=== PATIENT | male | born 1980 | race Caucasian/White ===

== ENCOUNTER 2018-09-27 11:47 | Inpatient (IN) | payer OTHER ==
[2018-09-27] MEDS ORDERED: cefTRIAXone\\ROCEPHIN 2 GM VIAL ONE (11:57)
[2018-09-27 12:04] LABS: #Basophils 0.1 thou/uL (0.0-0.2); #Eosinphils 0.2 thou/uL (0.0-0.7); #Monocytes 0.6 thou/uL (0.11-0.59); #Neutrophils 6.4 thou/uL (1.40-6.50); %Basophils 0.8 % (0.0-1.0); %Eosinophils 1.5 % (0.0-10.0); %Lymphocytes 29.5 % (21.0-51.0); %Monocytes 5.5 % (0.0-10.0); %Neutrophils 62.7 % (42.0-75.0); Hemoglobin 16.2 g/dL (14.0-18.0); Mean Corpuscular HGB CONC 31.3 g/dL (32.0-36.0); Mean Corpuscular Hemoglobin 28.5 pg (27.0-31.0); Mean Corpuscular Volume 91.1 fL (78.0-98.0); Mean Platelet Volume 7.4 fL (7.4-10.4); Platelet Count 309 thou/uL (130-400); RBC Distribution Width 11.8 % (11.5-14.5); Red Blood Cell (RBC) Count 5.69 mill/uL (4.70-6.10); White Blood Cell (WBC) Count 10.3 thou/uL (4.8-10.8)
[2018-09-27] MEDS ORDERED: Morphine 4 MG/ML VIAL ONE (12:09)
[2018-09-27] MEDS ORDERED: Lidocaine 1% w/Epinephrine 1:100K 20 ML VIAL ONE (12:14)
[2018-09-27 12:25] LABS: Albumin 4.3 g/dL (3.5-5.0); Bilirubin, Total 0.8 mg/dL (0.2-1.2); Calcium 9.2 mg/dL (7.8-10.44); Carbon Dioxide 19 mmol/L (22-29); Chloride 107 mmol/L (98-107); Globulin 2.6 g/dL (2.4-3.5); Glucose 106 mg/dL (70-105); Potassium 4.7 mmol/L (3.5-5.1); Protein, Total 6.9 g/dL (6.0-8.3); Sodium 137 mmol/L (136-145)
[2018-09-27 12:26] LABS: Alkaline Phosphatase 71 U/L (40-150)
[2018-09-27 12:27] LABS: Calc. Creatinine Clearance 0 mL/min (70-130); Estimated GFR-MDRD 77
[2018-09-27 12:28] LABS: BUN (Urea Nitrogen) 17 mg/dL (8.9-20.6)
[2018-09-27 12:29] LABS: ALT (SGPT) 52 U/L (8-55); AST (SGOT) 30 U/L (5-34)
[2018-09-27 12:37] LABS: Anion Gap 19 mmol/L (10-20)
[2018-09-27] MEDS ORDERED: Ketorolac Tromethamine 30 MG/ML VIAL IVP SCH (13:00)
[2018-09-27] MEDS ORDERED: hydrALAZINE 20 MG/ML VIAL SLOW IVP PRN (13:06)
[2018-09-27] MEDS ORDERED: Dextrose 50% Abboject 50 ML SYRINGE SLOW IVP PRN (13:06)
[2018-09-27] MEDS ORDERED: Dextrose 5% in Water 1,000 ML IV PRN (13:06)
[2018-09-27] MEDS ORDERED: Morphine 4 MG/ML VIAL SLOW IVP PRN ×2 (13:06→17:30)
--- NOTE | 2018-09-27 13:13 | RAD ---
RIGHT FORELEG RADIOGRAPHS 2 VIEWS: DATE: 09/27/2018. PROVIDED CLINICAL HISTORY: Right leg pain status post trauma. FINDINGS: There are comminuted, displaced fractures of the distal tibial and fibular metaphyses with predominan tly anterior displacement of the distal fragments with respect to the proximal fragments and some fra cture fragment overriding, particularly involving the fibula. No additional fracture is evident. IMPRESSION: Comminuted displaced distal tibial and fibular fractures. POS: TPC
[2018-09-27] MEDS ORDERED: Famotidine/PF 20 mg/2ml Vial SLOW IVP SCH (13:15)
--- NOTE | 2018-09-27 13:39 | HP ---
SUBJECTIVE: This is a 38-year-old male, who was working on a ladder, when he leaned over too far and fell approximately 6 to 8 feet landing on concrete injuring his right foot. The patient denies hitting his head. The patient denies any loss of consciousness. The patient complains of an open wound and pain to right ankle. The patient was brought in by ambulance and was given a total of 300 mcg of fentanyl for pain IV. The patient was evaluated in the emergency room, who was found to have an open right comminuted distal tib-fib fracture. The patient was also given morphine 4 mg for pain for splinting. The patient did receive a tetanus in the emergency room and Rocephin [address] Castle has been consulted with Orthopedics and is waiting OR. The patient last had coffee at 8:30 this morning. States he did not eat anything today. PAST MEDICAL HISTORY: Reflux. PAST SURGICAL HISTORY: Left knee replacement. FAMILY HISTORY: Dad with diabetes. SOCIAL HISTORY: The patient drinks socially, every week. Denies any drug use. The patient is a former tobacco user, quit smoking 10 years ago. MEDICATIONS: [id number] medications for reflux. ALLERGIES: NO KNOWN DRUG ALLERGIES. REVIEW OF SYSTEMS: A 10-point review of systems negative unless otherwise stated in the HPI. PHYSICAL EXAMINATION: GENERAL: The patient is afebrile with normal vital signs. Alert and oriented to person, place, time, and event. VITAL SIGNS: Blood pressure 133/80, temperature 98.4, SpO2 of 100% on room air, respirations 20, and heart rate 96. HEENT: Head is atraumatic and normocephalic. Pupils are equal and reactive at 3 mm bilateral. Extraocular muscles intact. Mouth exam normal. Mucous membranes moist. NECK: Normal range of motion. Trachea midline. No posterior cervical tenderness. RESPIRATORY: Breath sounds clear. No wheezing, rales, or rhonchi. Chest without any crepitus. No bruising noted. Chest expansion is equal. CARDIOVASCULAR: Regular rate and rhythm. HEART: Sounds normal. No murmurs noted. ABDOMEN: Soft, nontender, and nondistended. Active bowel sounds. BACK: Normal inspection. No tenderness. Normal range of motion. EXTREMITIES: The patient with open wound to right distal tib-fib. Long splint in place with positive distal pulses 2+. Left leg without any injury. Left arm without any injury. Right upper extremity, elbow abrasion. PELVIS: Stable. Non tender. No injuries noted. SKIN: Warm and dry. Abrasion, right elbow. Open wound, right lower extremity. LABORATORY DATA: WBC 10,300, RBC 5.69, hemoglobin 16.2, hematocrit 51.8, and platelets 309. Sodium 137, potassium 4.7, chloride 107, carbon dioxide 19, BUN 17, creatinine 1.07, estimated GFR 77, glucose 106, calcium 9.2, total bilirubin 0.8 , AST 30, ALT 52, alkaline phos 71, total protein 6.9, albumin 4.3, and globulin 2.6. DIAGNOSTICS: X-ray tibia-fibula, open right comminuted distal tib-fib fracture. IMPRESSION: 1. Fall from 6 to 8 feet. 2. Right open comminuted distal tib-fib fracture. 3. Acute traumatic pain. PLAN: Trauma will admit the patient to surgical ortho floor. Dr. Castle has been consulted and will evaluate and take the patient to the OR today. We will continue patient's IV antibiotics. We will keep the patient n.p.o. and place on IV fluids. We will manage the patient's pain. We will obtain PT consult after the surgery. The patient will be discussed with Dr. Bryson, attending trauma surgeon after this dictation. Job ID: [id number] [facility]
[2018-09-27] MEDS ORDERED: Fentanyl 100 MCG/2 ML VIAL ONE ×2 (13:43→16:25)
[2018-09-27] MEDS ORDERED: PACU-Morphine 4MG/ML VIAL SLOW IVP PRN (14:42)
[2018-09-27] MEDS ORDERED: HYDROmorphone 2 MG/ML VIAL SLOW IVP PRN (14:42)
[2018-09-27] MEDS ORDERED: Promethazine HCl 25 MG/ML VIAL IM PRN (14:42)
[2018-09-27] MEDS ORDERED: Promethazine HCl 25 MG/ML VIAL SLOW IVP PRN (14:42)
[2018-09-27] MEDS ORDERED: Ondansetron HCl/PF 4 MG/2 ML Vial IVP PRN (14:42)
[2018-09-27] MEDS ORDERED: Morphine 10 MG/ML VIAL ONE (15:00)
--- NOTE | 2018-09-27 15:57 | RAD ---
RIGHT TIBIA/FIBULA 09/27/18 HISTORY: Right tibia and fibula fracture. COMPARISON: 09/27/18 FINDINGS/IMPRESSION: Multiple limited intraoperative fluoroscopic views of the right tibia and fibula were submitted for i nterpretation. The patient is status post antegrade intramedullary db fixation of a distal tibia fra cture. An adjacent fibula fracture is also seen. There is better alignment of the fracture compared t o the preoperative radiograph. POS: NEDRA
[2018-09-27] MEDS ORDERED: Meperidine HCl/PF 25 MG/ML VIAL ONE (16:04)
[2018-09-27] MEDS ORDERED: CEFAZOLIN/Water 2 GM/20 ML SYRINGE SLOW IVP SCH (16:15)
[2018-09-27] MEDS ORDERED: Lidocaine 1% PF 5 ML VIAL ONE (16:39)
[2018-09-27] MEDS ORDERED: Ondansetron PF 4 MG/2 ML Vial ONE (16:39)
[2018-09-27] MEDS ORDERED: PROPOFOL 200 MG/20 ML VIAL ONE (16:39)
--- NOTE | 2018-09-27 16:51 | PRG ---
DATE OF SERVICE: 09/27/2018 SUBJECTIVE: Kaz is a 38-year-old man, who fell of a ladder landing approximately 6 to 8 feet. He suffered an open right distal tib-fib fractures. The patient just returned from the operating room and is awake in the postanesthesia care unit. His [place] Coma Scale is noted at E4, M6, V4. He reports adequate pain control. I have reviewed the history and physical by the trauma PA, Ms. Moran. The patient has no significant past medical history except for gastroesophageal reflux disease. He is status post left knee arthroplasty. He was on no prescription medications prior to this admission. IMPRESSION: 1. Status post fall from a ladder. 2. Right distal tib-fib fractures status post surgical repair. PLAN: 1. Postanesthesia care, the patient will be transferred to general surgical floor, where I will continue with further medical management. 2. We will initiate physical and occupational therapy as appropriate. 3. Chemical VTE prophylaxis will be initiated. Above findings and plan discussed with the patient, who indicates understanding of information given. I have discussed this patient's care plan with Ms. Moran and I do agree with her history and physical as documented. Job ID: [id number]
[2018-09-27] MEDS: Acetaminophen 1,000 MG in Premix Bag 1 BAG IVPB SCH (17:45)
[2018-09-27] MEDS: Ketorolac Tromethamine 30 MG/ML VIAL IVP SCH (17:45)
[2018-09-27] MEDS: Ondansetron PF 4 MG/2 ML Vial IVP PRN (18:01)
[2018-09-27] MEDS: Sodium Chloride 0.9% 1,000 ML IV SCH ×2 (19:15→22:28)
[2018-09-27] MEDS: CEFAZOLIN 2 GM/50 ML-DEXTROSE 2 GM in Premix Bag 1 BAG IVPB SCH (20:47)
[2018-09-27] MEDS: Famotidine 20 MG TAB PO SCH (20:48)
[2018-09-27 22:00] VITALS: BMI 26.2
[2018-09-27] MEDS: Senokot S 8.6-50 MG TAB PO SCH (22:28)
[2018-09-28] MEDS: Acetaminophen 1,000 MG in Premix Bag 1 BAG IVPB SCH ×2 (00:29→05:14)
[2018-09-28] MEDS: Ondansetron PF 4 MG/2 ML Vial IVP PRN (00:30)
[2018-09-28] MEDS: Ketorolac Tromethamine 30 MG/ML VIAL IVP SCH ×2 (00:30→05:14)
[2018-09-28] MEDS: CEFAZOLIN 2 GM/50 ML-DEXTROSE 2 GM in Premix Bag 1 BAG IVPB SCH ×3 (05:13→20:51)
[2018-09-28] MEDS: Sodium Chloride 0.9% 1,000 ML IV SCH (05:29)
[2018-09-28 06:18] LABS: #Eosinphils 0.1 thou/uL (0.0-0.7); #Lymphocytes 2.6 thou/uL (1.20-3.40); #Monocytes 1.1 thou/uL (0.11-0.59); #Neutrophils 5.4 thou/uL (1.40-6.50); %Eosinophils 0.6 % (0.0-10.0); %Lymphocytes 28.5 % (21.0-51.0); %Monocytes 12.1 % (0.0-10.0); %Neutrophils 58.8 % (42.0-75.0); Hemoglobin 12.9 g/dL (14.0-18.0); Mean Corpuscular HGB CONC 33.9 g/dL (32.0-36.0); Mean Corpuscular Hemoglobin 30.9 pg (27.0-31.0); Mean Corpuscular Volume 91.2 fL (78.0-98.0); Mean Platelet Volume 7.4 fL (7.4-10.4); Platelet Count 243 thou/uL (130-400); RBC Distribution Width 11.8 % (11.5-14.5); Red Blood Cell (RBC) Count 4.17 mill/uL (4.70-6.10); White Blood Cell (WBC) Count 9.3 thou/uL (4.8-10.8)
[2018-09-28 06:26] LABS: ALT (SGPT) 37 U/L (8-55); AST (SGOT) 47 U/L (5-34); Albumin 3.3 g/dL (3.5-5.0); Alkaline Phosphatase 52 U/L (40-150); Anion Gap 11 mmol/L (10-20); BUN (Urea Nitrogen) 13 mg/dL (8.9-20.6); Calc. Creatinine Clearance 152 mL/min (70-130); Calcium 7.9 mg/dL (7.8-10.44); Carbon Dioxide 23 mmol/L (22-29); Chloride 106 mmol/L (98-107); Estimated GFR-MDRD Greater than 90; Globulin 2.1 g/dL (2.4-3.5); Glucose 95 mg/dL (70-105); Potassium 3.9 mmol/L (3.5-5.1); Protein, Total 5.4 g/dL (6.0-8.3); Sodium 136 mmol/L (136-145)
[2018-09-28] MEDS ORDERED: traMADol HCl 50 MG TAB PO PRN ×3 (06:53→08:31)
[2018-09-28] MEDS ORDERED: Morphine 4 MG/ML VIAL SLOW IVP PRN ×2 (06:54)
[2018-09-28] MEDS ORDERED: Potassium Chloride 20 MEQ TAB PO SCH (07:00)
[2018-09-28 07:39] LABS: Magnesium 1.8 mg/dL (1.6-2.6); Phosphorus 3.4 mg/dL (2.3-4.7)
[2018-09-28] MEDS: Famotidine 20 MG TAB PO SCH ×2 (08:58→20:50)
[2018-09-28] MEDS: Acetaminophen 500 MG TAB PO SCH ×3 (08:58→20:50)
[2018-09-28] MEDS: Enoxaparin Sodium 40 MG/0.4 ML SYRINGE SC SCH (08:59)
[2018-09-28] MEDS: Senokot S 8.6-50 MG TAB PO SCH ×2 (08:59→20:50)
[2018-09-28] MEDS: Ibuprofen 800 MG TAB PO SCH ×2 (08:59→16:29)
[2018-09-28] MEDS: Polyethylene Glycol 3350 17 GM Packet PO SCH (08:59)
--- NOTE | 2018-09-28 11:39 | PRG ---
DATE OF SERVICE: 09/28/2018 SUBJECTIVE: A 38-year-old male status post fall from 6-8 foot ladder with right open comminuted distal tibia fibular fracture, status post ortho fixation, postop day #1. Today, patient has no complaints. Nursing reports no acute events overnight. Still awaiting physical therapy to visit with the patient. He has no other concerns at this time. OBJECTIVE: VITAL SIGNS: Temperature 98.3, pulse 68, respirations 16, and saturations 93% on room air, and blood pressure 103/62. GENERAL: Resting comfortably in bed. No acute distress. HEENT: Head is atraumatic, normocephalic. NECK: Full range of motion. Trachea midline. RESPIRATORY: Breath sounds clear. No wheezing, rales, or rhonchi. Chest with even rise and fall. CARDIOVASCULAR: Regular rate and rhythm. ABDOMEN: Soft, nontender, nondistended. Active bowel sounds. EXTREMITIES: Postoperative bandaging to right lower extremity. It is clean, dry, intact. No signs of acute infection. SKIN: Warm and dry. No abnormal lesions or rashes. LABORATORY DATA: Hemoglobin 12.9, hematocrit 38.8, WBC 9.8. MCV 91.2. Sodium 136, potassium 3.9, chloride 106, carbon dioxide 23, creatinine 0.87, GFR greater than 90 Positive for magnesium of 1.8. DIAGNOSTIC IMAGING: No new imaging reviewed today. ASSESSMENT: 1. Fall from 6-8 feet from ladder. 2. Right open comminuted distal tib-fib fracture status post ortho fixation, postoperative day #1. PLAN: 1. Pain currently controlled. We will transition to oral scheduled pain medications including ibuprofen and Tylenol with tramadol for breakthrough pain. Currently awaiting physical therapy to evaluate. 2. Continue with IV pain medication. 3. Per Ortho, continue current antibiotic regimen with cefazolin for duration of 2 days. 4. DVT prophylaxis. We will initiate Lovenox 40 mg subcutaneous daily. Encourage ambulation. 5. Hypokalemia. Replace. The patient was seen and examined by Dr. Bryson and plan discussed in detail with patient who agrees with the above findings. Job ID: [id number] [facility]TDD
[2018-09-28] MEDS: traMADol HCl 50 MG TAB PO PRN (20:51)
--- NOTE | 2018-09-28 21:35 | OP ---
DATE OF PROCEDURE: 09/27/2018 PREOPERATIVE DIAGNOSIS: Right grade 2 open tib-fib fracture. POSTOPERATIVE DIAGNOSIS: Right grade 2 open tib-fib fracture. PROCEDURES PERFORMED: 1. Intramedullary nail stabilization of right tibia. 2. Irrigation and debridement of right tibia. ANESTHESIA: General. SENIOR SYSTEMS SOFTWARE ENGINEER: Karie Cortez PA-C ESTIMATED BLOOD LOSS: 200 mL. IMPLANTS: Synthes nail system was used with a 9 x 390 mm nail and a total of 3 cross-locking screws. COMPLICATIONS: None. DRAINS: None. SPECIMEN: None. OUTCOME: Successful closure of wound and stable fixation of the IM nail with acceptable alignment. INDICATIONS FOR PROCEDURE: The patient is a pleasant 38-year-old gentleman who while at work, fell from a ladder from a height of approximately 6 feet, sustaining an open distal tib-fib fracture. The patient has received 2 g of Rocephin in the emergency room and a splint applied to the leg along with a saline-soaked gauze. The patient now to be taken to the operating room for formal irrigation, debridement, and stabilization if appropriate with either external fixator or intramedullary nail stabilization. Informed consent has been obtained. I believe all questions have been answered. DESCRIPTION OF PROCEDURE: The patient was brought to the operating room and a time-out performed followed by induction of general anesthesia. Next, the patient was positioned supine on the fracture table with the injured extremity held over a thigh bolster and then longitudinal traction applied with the traction device. The unaffected extremity was just held in extension to allow for AP, lateral imaging of the right tibia. Next, a sterile prep and drape was performed of this right lower leg. Attention was then placed to the open traumatic wound, this was a vertical incision. Skin edges were found to be intact. There was no gross contamination. Some hair was removed from the wound and then the wound irrigated with 6 L of normal saline using Pulsavac. The visible fracture fragments all had periosteum still attached with some soft tissue attachment and as such, the bone was not removed from the wound. Next, attention was placed at stabilization of the tibia. A vertical incision was made extending from the patella down over the patellar tendon to the level of the tibial tubercle after skin was sharply incised. Dissection was carried down bluntly exposing the peritenon of the patellar tendon. The peritenon was incised in line with skin incision, reflected medially and laterally. Next, the patellar tendon was reflected laterally gaining access to the proximal tibia and a control was used to obtain a starting point for intramedullary nail placement. Once established, a ball-tipped guidewire was passed down the shaft of the tibia across the comminuted fracture of the distal 3rd and into the distal tibial metaphysis. Next, reaming was started at 8.5 mm and continued up to 9 mm with chatter occurring at 9 mm. This reaming was necessary due to the fact the smallest nail available was a size 9. Once some reaming performed, the wound again irrigated with Pulsavac and then a 9 x 390 mm nail was passed down the canal across the fracture in the distal tibial metaphysis. Next, under C-arm guidance, two small stab wounds were made, one medially and one anteriorly and then a freehand technique was used for placement of cross-lock screws. At the completion of this, a single proximal cross-lock screw was applied using the appropriate jig. The jig was then removed and formal AP, lateral C-arm imaging of both proximal tibia and the fracture with distal cross-locking screws was performed and these images were saved. The wound again irrigated distally at the traumatic site and this was closed with a single layer of 3-0 nylon in simple fashion. This was then followed by closure of the surgical incisions. The small stab wounds for the cross-lock screws were reapproximated with benton. The midline anterior knee incision was reapproximated in layers with 0 Vicryl for the peritenon, 2-0 Vicryl subcutaneously, and benton for the skin. Xeroform gauze, Webril, and fiberglass splint were then applied to the leg, and the patient was transferred to recovery room in stable condition. There were no complications. He tolerated the procedure well. Job ID: [id number]
[2018-09-29] MEDS: Ibuprofen 800 MG TAB PO SCH ×3 (01:59→18:24)
[2018-09-29] MEDS: Acetaminophen 500 MG TAB PO SCH ×4 (03:21→20:59)
[2018-09-29] MEDS: CEFAZOLIN 2 GM/50 ML-DEXTROSE 2 GM in Premix Bag 1 BAG IVPB SCH ×3 (03:21→20:58)
[2018-09-29] MEDS: Ondansetron ODT 4 MG TAB PO PRN ×2 (03:56→04:31)
[2018-09-29] MEDS: traMADol HCl 50 MG TAB PO PRN ×2 (06:21→19:07)
[2018-09-29 06:55] LABS: #Eosinphils 0.1 thou/uL (0.0-0.7); #Lymphocytes 1.3 thou/uL (1.20-3.40); #Monocytes 0.8 thou/uL (0.11-0.59); #Neutrophils 7.4 thou/uL (1.40-6.50); %Basophils 0.1 % (0.0-1.0); %Lymphocytes 13.8 % (21.0-51.0); %Monocytes 8.4 % (0.0-10.0); %Neutrophils 76.8 % (42.0-75.0); Hemoglobin 12.8 g/dL (14.0-18.0); Mean Corpuscular HGB CONC 33.1 g/dL (32.0-36.0); Mean Corpuscular Hemoglobin 30.6 pg (27.0-31.0); Mean Corpuscular Volume 92.5 fL (78.0-98.0); Mean Platelet Volume 7.5 fL (7.4-10.4); Platelet Count 237 thou/uL (130-400); Red Blood Cell (RBC) Count 4.19 mill/uL (4.70-6.10); White Blood Cell (WBC) Count 9.6 thou/uL (4.8-10.8)
[2018-09-29] MEDS: Senokot S 8.6-50 MG TAB PO SCH ×2 (08:54→20:59)
[2018-09-29] MEDS: Polyethylene Glycol 3350 17 GM Packet PO SCH (08:55)
[2018-09-29] MEDS: Enoxaparin Sodium 40 MG/0.4 ML SYRINGE SC SCH (08:55)
[2018-09-29] MEDS: Famotidine 20 MG TAB PO SCH ×2 (08:55→20:58)
--- NOTE | 2018-09-29 15:11 | PRG ---
DATE OF SERVICE: 09/29/2018 SUBJECTIVE: The patient is a 38-year-old male status post fall from 6 to 8-foot ladder with right open comminuted distal tibiofibular fracture, status post ortho fixation and irrigation and debridement, postop day #2. Today, the patient has no complaints. Reporting that pain is well controlled. Condition per nursing reports, no acute events overnight. Physical Therapy saw the patient yesterday and recommended home with continued support. The patient has voiced no other concerns at this time. OBJECTIVE: VITAL SIGNS: Temperature 98.7, pulse 80, respirations 13, O2 saturation 94% on room air. GENERAL: Resting comfortably in bed, in no acute distress. HEENT: Head is atraumatic, normocephalic. RESPIRATORY: Breath sounds are clear. No wheezing, rales, or rhonchi. Chest with even rise and fall. CARDIOVASCULAR: Regular rate and rhythm. ABDOMEN: Soft, nontender, nondistended with active bowel sounds. EXTREMITIES: Postoperative bandaging to right lower extremity. Clean, dry, intact. No signs of acute infection. LABORATORY DATA: WBC 9.6, hemoglobin 12.8, hematocrit 38.7, neutrophils 76.9. Sodium 136, potassium 3.9, phosphorus 3.4, magnesium 1.8, creatinine 0.97, GFR greater than 90. DIAGNOSTIC IMAGING: No new imaging reviewed today. ASSESSMENT & PLAN: 1. Fall from a 6 to 8-foot ladder. 2. Right open comminuted distal tibiofibular fracture, status post orthopedic fixation, postoperative day #2. 3. Pain currently controlled. Continue current pain regimen. 4. Surgical site: Orthopedic has assessed this morning and says that wound looks good. Recommendations, continue cefazolin through 8 p.m. tomorrow, then discharge home. 5. Deep vein thrombosis prophylaxis. Continue Lovenox 40 subcutaneous daily, encourage ambulation as much as tolerated. The patient will be seen and examined by Dr. Bryson and the plan discussed later today. Job ID: [id number] [facility]
[2018-09-30] MEDS: Ibuprofen 800 MG TAB PO SCH ×3 (00:02→17:31)
[2018-09-30] MEDS: CEFAZOLIN 2 GM/50 ML-DEXTROSE 2 GM in Premix Bag 1 BAG IVPB SCH ×3 (03:59→16:13)
[2018-09-30] MEDS: Acetaminophen 500 MG TAB PO SCH ×3 (03:59→16:16)
[2018-09-30] MEDS: traMADol HCl 50 MG TAB PO PRN (03:59)
[2018-09-30 07:18] LABS: Anion Gap 8 mmol/L (10-20); BUN (Urea Nitrogen) 10 mg/dL (8.9-20.6); Calc. Creatinine Clearance 154 mL/min (70-130); Calcium 8.5 mg/dL (7.8-10.44); Carbon Dioxide 28 mmol/L (22-29); Chloride 104 mmol/L (98-107); Estimated GFR-MDRD Greater than 90; Glucose 96 mg/dL (70-105); Magnesium 2.1 mg/dL (1.6-2.6); Phosphorus 2.5 mg/dL (2.3-4.7); Potassium 3.8 mmol/L (3.5-5.1); Sodium 136 mmol/L (136-145)
[2018-09-30] MEDS: Senokot S 8.6-50 MG TAB PO SCH (09:47)
[2018-09-30] MEDS: Enoxaparin Sodium 40 MG/0.4 ML SYRINGE SC SCH (09:47)
[2018-09-30] MEDS: Famotidine 20 MG TAB PO SCH (09:47)
[2018-09-30] MEDS: Polyethylene Glycol 3350 17 GM Packet PO SCH (09:48)
[2018-09-30 16:39] VITALS: BP 109/73; TEMP 98.2
[2018-09-30] MEDS ORDERED: CEFAZOLIN/Water 2 GM/20 ML SYRINGE SLOW IVP SCH (17:00)
--- NOTE | 2018-10-01 03:55 | DIS ---
DATE OF ADMISSION: 09/27/2018 DATE OF DISCHARGE: 09/30/2018 ADMISSION DIAGNOSES: 1. Status post fall from ladder, 8 feet. 2. Right distal tib-fib fracture. DISCHARGE DIAGNOSES: 1. Status post fall from ladder, 8 feet. 2. Right distal tib-fib fracture, open. CONSULTING PHYSICIAN: Dr. Castle with Orthopedic Surgery. PROCEDURES: I and D of right tib-fib and IM nail of right tib-fib performed on September 27, 2018. HOSPITAL COURSE: Mr. Mccurdy is a 38-year-old male patient who presented to the emergency department after falling 8 feet off a ladder. He reported no loss of consciousness. Emergency department assessment revealed a right distal open tib -fib fracture. Dr. Castle with Orthopedic Surgery was consulted to see the patient ,, who recommended IV antibiotics and took the patient to the OR on the for fixation. He remained inpatient until September 30, 2018, to receive IV antibiotics with Ancef. At the time of discharge, the patient was tolerating regular diet. Pain was well controlled and he was urinating without difficulty. He was discharged home with a walker and crutches. DISCHARGE DISPOSITION: Home. DISCHARGE CONDITION: Satisfactory. PHYSICAL EXAMINATION: VITAL SIGNS: Temperature 98.2, pulse 84, respirations 18, oxygen saturation 94 % on room air, blood pressure 109/73. GENERAL: Well-appearing male, sitting up in bed with no signs of acute distress. NEUROLOGIC: GCS is 15. Gross motor and sensation intact. Pupils are equal, round, and reactive to light. RESPIRATORY: Equal breath sounds bilaterally. Equal chest rise and fall. No signs of acute respiratory distress. CARDIOVASCULAR: Regular rate and rhythm. No murmurs, gallops, or rubs. ABDOMEN: Soft, nontender, and nondistended with positive bowel sounds. EXTREMITIES: Postop bandages to right lower extremity, which are clean, dry, and intact. Gross motor and sensation intact to all 4 extremities. 2+ pulses in all extremities. No significant swelling noted. DISCHARGE INSTRUCTIONS: The patient was discharged home on a regular diet with crutches and a walker and is to follow up with Dr. Castle. He is to be strictly nonweightbearing on the right lower extremity. DISCHARGE MEDICATIONS: Include, 1. Zofran. 2. Tylenol. 3. Aspirin. 4. Ibuprofen. 5. Tramadol. FOLLOWUP APPOINTMENTS: The patient is to follow up with Dr. Castle. He does not need to follow up with Trauma Surgery. This is merely a summary of the patient's hospitalization. For full details, please see his medical record in its entirety. Job ID: [id number] [facility]TDD
[2018-10-01] MEDS ORDERED: Aspirin 325 mg Enteric Coated Tablet PO SCH (09:00)
== END 2018-09-30 18:03 | disposition home or self-care (01) | DRG 492 ==
LOC: ERS 11:47 → SDC 12:14 → SURG A 17:11
PROVIDERS: ADMIT Surgery; ATTEND Surgery
PROC: 0QSG06Z Reposition Right Tibia with Intramedullary Internal Fixation Device, Open Approach (ICD-10-PCS; principal; 2018-09-27)
DX: S82.301B Unspecified fracture of lower end of right tibia, initial encounter for open fracture type I or II (principal); S82.831B Other fracture of upper and lower end of right fibula, initial encounter for open fracture type I or II; W11.XXXA Fall on and from ladder, initial encounter
CPT/HCPCS: 29515; 36415; 76000; 80048; 80053; 83735; 84100; 85025; 86850; 86900; 86901; 90471; 96365; 96375; C1713; C1769; G0390; J0131; J0696; J1650; J1885; J2001; J2175; J2270; J2405; J2704; J3010; Q0162

== ENCOUNTER 2019-01-31 11:22 | Day surgery (SDC) | payer OTHER ==
[2019-01-30 16:36] VITALS: BMI 25.6
[2019-01-31] MEDS ORDERED: Midazolam HCl 2 mg/2 ml Vial ONE (12:49)
[2019-01-31] MEDS ORDERED: Fentanyl 100 MCG/2 ML VIAL ONE ×3 (12:50→15:31)
[2019-01-31] MEDS ORDERED: Bupivacaine HCl 0.5%/Epinephrine 1:200,000/PF 30 ml Vial ONE (13:32)
--- NOTE | 2019-01-31 14:27 | RAD ---
Intraoperative imaging of the right tibia/fibula: 01/31/2019 COMPARISON: 09/27/2018 HISTORY: Internal db exchange right tibia FINDINGS: 4 intraoperative images are provided. Images demonstrate an intramedullary db within the r ight tibia. This is traversing an obliquely oriented distal tibial shaft fracture. There is a proximal and a distal interlocking screw present. IMPRESSION: Intraoperative imaging as above.
[2019-01-31] MEDS ORDERED: Meperidine HCl/PF 25 MG/ML VIAL ONE (14:47)
[2019-01-31] MEDS ORDERED: HYDROcodone/Acetaminophen 5/325 mg Tablet ONE (16:06)
--- NOTE | 2019-01-31 20:56 | OP ---
DATE OF PROCEDURE: 01/31/2019 PREOPERATIVE DIAGNOSIS: Delayed union, right distal tibial shaft. POSTOPERATIVE DIAGNOSIS: Delayed union, right distal tibial shaft. SURGICAL PROCEDURE: Exchange reamed nailing of right tibia. ANESTHESIA: General. INFORMATION SECURITY DIRECTOR: Karie Cortez PA-C TOURNIQUET TIME: Approximately 1 hour at 300 mmHg. IMPLANTS: Synthes 12 x 390 mm nail with 3 cross-lock screws. SPECIMEN: Explanted Synthes 9 x 390 mm nail with 3 cross-lock screws. COMPLICATIONS: None. DRAINS: None. OUTCOME: Stable nailing of right tibia. INDICATIONS: Mr. Mccurdy is a pleasant 38-year-old gentleman who is status post open right distal tibial shaft fracture with severe comminution. The patient had an unreamed intramedullary nail placed initially. However, he has gone on to show no obvious evidence of bony union now 3 months postop. As such, the patient now taken back to the operating room for a reamed exchange nailing of this right tibia. Informed consent has been obtained. I believe all questions have been answered. DESCRIPTION OF PROCEDURE: The patient was brought to the operating room and a time-out performed followed by induction of general anesthesia. Next, he was positioned supine on the OR table and a sterile prep and drape was performed of the right lower extremity. Next, the limb was exsanguinated with Esmarch bandage, tourniquet inflated to 300 mmHg. A midline anterior knee incision was made following the scar from his prior surgery. After skin was sharply incised, dissection was carried down sharply to the level of the patellar tendon. What was left of the peritenon was elevated off the patellar tendon and reflected medially gaining access to the medial aspect of the patellar tendon. Using blunt dissection, an interval was developed to the medial side of the patellar tendon, exposing the anterior proximal tibial plateau. Next, a curette was used and the hole from the nail insertion was found, soft tissue removed and then the top of the nail could be easily visualized. Next, a small stab wound was made medial and proximal overlying the proximal cross-lock screw. After skin was incised, dissection was carried down bluntly and the screw removed without difficulty. Similar procedure was then performed distally for both the medial to lateral and anterior-posterior cross lock screws. Next, a removal jig was screwed into the top of the nail and then the nail was removed without difficulty. A ball-tipped guidewire was then passed down the shaft of the tibia and then reaming was started at size 9. It was carried up at 1 mm intervals with chatter occurring at size 11. The reaming was continued up to size 13, which had good cortical chatter throughout the isthmus of the tibia. Next, a 12 x 390 mm nail was passed down the canal over this ball-tipped guidewire bringing it all the way down to the distal physeal scar. Once positioned, the ball-tipped guidewire was removed and then cross locking was able to be accomplished through this same cross lock holes from his original nail. With completion of this, AP and lateral C-arm imaging was performed of both proximal and distal cross lock sites including the fracture site. The wounds were irrigated with bulb syringe with the small cross lock incisions closed with benton. The midline anterior knee incision was closed in layers with 0 Vicryl for a peritenon closure, 2-0 Vicryl subcutaneously and then benton for the skin. The proximal wound was then infiltrated with 0.5% Marcaine for postoperative pain management and then a Xeroform gauze and bulky dressing was applied to the knee and distal cross lock sites. The patient was then placed back in his walker boot and transferred to recovery room in stable condition. Tourniquet was let down at the completion of dressing. The patient tolerated the procedure well. There were no complications. Job ID: [id number]
== END 2019-01-31 17:15 | disposition home or self-care (01) ==
LOC: SDC 11:22
PROVIDERS: ATTEND Orthopaedic Surgery
PROC: 0QSG04Z Reposition Right Tibia with Internal Fixation Device, Open Approach (ICD-10-PCS; principal; 2019-01-31)
DX: S82.251 Displaced comminuted fracture of shaft of right tibia (principal); Z98.890 Other specified postprocedural states; W11.XXXD Fall on and from ladder, subsequent encounter
CPT/HCPCS: 76000; C1713; C1769; J0670; J0690; J2175; J2250; J3010; J3370

== ENCOUNTER 2019-02-20 17:05 | Emergency (ER) | payer OTHER ==
--- NOTE | 2019-02-20 17:50 | ULT ---
EXAM: Right lower extremity venous ultrasound HISTORY: Right lower extremity pain and edema COMPARISON: None TECHNIQUE: Multiplanar grayscale and color Doppler images were obtained in a right lower extremity ve nous ultrasound. Spectral analysis of the Doppler waveforms were performed. FINDINGS: Thrombus is visualized in the common femoral vein, superficial femoral vein, and popliteal vein. The thrombus is nonocclusive in the common femoral vein. The thrombus is also nonocclusive in the popliteal vein. No significant flow is seen in the superficial femoral vein and profunda femoral vein. The posterior tibial vein and greater saphenous vein are patent without evidence of thrombus. The palpable region in the posterior right calf is a superficial vein that contains a thrombus. IMPRESSION: Extensive right lower extremity DVT
[2019-02-20 19:02] LABS: #Basophils 0.1 thou/uL (0.0-0.2); #Eosinphils 0.4 thou/uL (0.0-0.7); #Lymphocytes 3.5 thou/uL (1.20-3.40); #Monocytes 0.5 thou/uL (0.11-0.59); #Neutrophils 3.6 thou/uL (1.40-6.50); %Basophils 0.9 % (0.0-1.0); %Eosinophils 4.6 % (0.0-10.0); %Monocytes 6.3 % (0.0-10.0); %Neutrophils 45.2 % (42.0-75.0); Hemoglobin 14.7 g/dL (14.0-18.0); Mean Corpuscular HGB CONC 34.2 g/dL (32.0-36.0); Mean Corpuscular Hemoglobin 29.8 pg (27.0-31.0); Mean Corpuscular Volume 87.2 fL (78.0-98.0); Platelet Count 415 thou/uL (130-400); RBC Distribution Width 12.2 % (11.5-14.5); Red Blood Cell (RBC) Count 4.93 mill/uL (4.70-6.10)
[2019-02-20 19:10] LABS: INR-International Normal Ratio 0.9; PTT 27.7 SEC (22.9-36.1); Prothrombin Time 12.4 SEC (12.0-14.7)
== END 2019-02-20 20:10 | disposition home or self-care (01) ==
LOC: ERS 17:05
DX: I82.401 Acute embolism and thrombosis of unspecified deep veins of right lower extremity (principal); Z87.891 Personal history of nicotine dependence
CPT/HCPCS: 36415; 85025; 85610; 85730

== ENCOUNTER 2019-04-18 07:59 | Outpatient (CLI) | payer OTHER ==
--- NOTE | 2019-04-18 08:58 | ULT ---
RIGHT LOWER EXTREMITY VENOUS ULTRASOUND WITH DOPPLER: COMPARISON: 02/20/2019 HISTORY: Right calf pain. TECHNIQUE: Coronel-scale, color-low, Doppler imaging and spectral wave-form analysis was performed of the right low er extremity venous system. FINDINGS: There is compressibility and flow in the common femoral vein. There is flow in the greater saphenous vein. There is absence of flow in the profunda femoral vein. There is partial flow in the femoral vein and popliteal vein. The posterior tibial vein is patent. IMPRESSION: Partial resolution of previously noted right lower extremity deep vein thrombus. There is residual c lot in the femoral vein and popliteal vein, as well as the profunda femoral vein. Transcribed Date/Time: 04/18/2019 9:15 AM
== END 2019-04-18 08:00 | disposition home or self-care (01) ==
LOC: SCSULT 07:59
PROVIDERS: ATTEND Family Medicine
DX: M79.661 Pain in right lower leg (principal); I82.431 Acute embolism and thrombosis of right popliteal vein; I82.411 Acute embolism and thrombosis of right femoral vein

== ENCOUNTER 2020-01-16 10:52 | Outpatient (CLI) | payer OTHER ==
--- NOTE | 2020-01-16 13:58 | ULT ---
EXAM: RIGHT LOWER EXTREMITY VENOUS DUPLEX ULTRASOUND INCLUDING COLOR AND SPECTRAL DOPPLER IMAGIN01/16/20 HISTORY: Chronic thromboembolism right lower extremity. COMPARISON: 08/14/19 and 02/20/19. FINDINGS: Exam performed from groin to ankle including visualized greater saphenous, common femoral, superficia l femoral, profunda femoral, popliteal, trifurcation, and posterior tibial vein regions. There is evidence for some persistent intraluminal thrombus. There is decreased compressibility and a ugmentation. There is no evidence for complete occlusion. Appearance is stable from prior exams. IMPRESSION: Stable exam. Partial compressibility and partial flow without evidence for complete occlusion. Appear ance is most consistent with residual disease. No significant new process. POS: RRE
== END 2020-01-16 10:53 | disposition home or self-care (01) ==
LOC: SCSULT 10:52
PROVIDERS: ATTEND Family Medicine
DX: I82.511 Chronic embolism and thrombosis of right femoral vein (principal)